=== PATIENT | female | born 1935 | race Caucasian/White ===

== ENCOUNTER 2016-11-06 02:12 | Inpatient (IN) | payer MEDICARE, MEDICAID ==
[2016-11-06] VITALS (8 sets, daily range): BP systolic 110–138; BP diastolic 37–76
[~2016-11-06] VITALS: Ht 165.1 cm; Wt 97.8 kg
[~2016-11-06 02:12] MED LIST: AMLODIPINE BESYL5 MG PO; ASPIRIN ADULT L81 M1 PO; ASPIRIN81 M1 PO; CLARITIN10 MG PO; DEPAKOTE DR500 MG PO; DIABETIC T100 MG/51 PO; HYDR25T PO; HYDROCODONE BIT1 T11 PO; KEPPRA500 MG PO; LISINOPRIL40 MG PO; LYRICA100 M1 PO; NEURONTIN100 MG PO; NORFLEX100 MG PO; NOVOLOG 70/30 M10 ML IV; NOVOLOG FLEX100 U/ML SC; NOVOLOG MI100 UNIT/1 SQ; OYSTERCAL-D 5001 TAB PO; PRAVACHOL40 MG PO; PROTONIX20 MG PO; ROBITUSSIN NIG118 ML PO; TYLENOL325 M1 PO; ZESTRIL20 MG PO; ZESTRIL40 MG PO; ZOFRAN4 MG PO; [UNRECOGNIZED DRUG - OTHER] IV
[2016-11-06] MEDS ORDERED: ATORVASTATIN CA40 M1 PO (02:22)
[2016-11-06] MEDS ORDERED: ZOLOFT25 MG PO (02:26)
[2016-11-06] MEDS ORDERED: ULTRAM50 MG PO (02:26)
[2016-11-06 02:53] LABS: BASO % 0.2 % (0.0-1.0); EOS # 0.1 10*3/uL (0.0-0.4); EOS % 2.3 % (1.0-4.0); HEMATOCRIT 31.2 % (37.0-47.0); HEMOGLOBIN 9.7 g/dl (12.0-16.0); IG # 0.1 10*3/uL (0.0-0.1); LYMPH # 0.6 10*3/uL (1.3-4.4); LYMPH % 11.2 % (27.0-41.0); MEAN CELL VOLUME 95.1 fl (81.0-99.0); MEAN CORPUSCULAR HGB 29.6 pg (27.0-31.0); MEAN CORPUSCULAR HGB CONC 31.1 g/dl (33.0-37.0); MEAN PLATELET VOLUME 10.7 fl (9.6-12.3); MONO # 0.8 10*3/uL (0.1-1.0); MONO % 15.7 % (3.0-9.0); NEUT # 3.7 10*3/uL (2.3-7.9); NEUT % 69.7 % (47.0-73.0); PLATELET COUNT AUTOMATED 120 10*3/uL (130-400); RED BLOOD COUNT 3.28 10*6/uL (4.10-5.10); RED CELL DISTRI WIDTH 13.4 % (0-14.5); WHITE BLOOD COUNT 5.3 10*3/uL (4.8-10.8)
[2016-11-06 03:12] LABS: ALBUMIN 3.2 gm/dl (3.1-4.5); BILIRUBIN, TOTAL 0.3 mg/dl (0.2-1.0); POTASSIUM 5.4 mmol/L (3.5-5.1); TOTAL PROTEIN 6.6 gm/dL (6.4-8.2); TROPONIN I 0.026 ng/ml (<0.5)
[2016-11-06 04:05] LABS: BILIRUBIN NEGATIVE (NEGATIVE); BLOOD TRACE-INTACT (NEGATIVE); CLARITY SL CLOUDY (CLEAR); COLOR YELLOW (YELLOW); GLUCOSE TRACE (NEGATIVE); KETONE NEGATIVE (NEGATIVE); LEUKO ESTERASE 2+ (NEGATIVE); NITRITE NEGATIVE (NEGATIVE); PH 6.5 (5.0-9.0); PROTEIN NEGATIVE (NEGATIVE); UROBILINOGEN 0.2 E.U./dl (0.2-1.0)
[2016-11-06 04:13] LABS: BACTERIA 2+; EPITHELIAL CELLS 21-30; RBC 0-2 rbc/hpf (0-2); URINE REFLEX COMMENT YES (NO); WBC 31-40 wbc/hpf (0-5)
[2016-11-06] MEDS ORDERED: LANTUS100 U/ML SQ (07:24)
[2016-11-07] VITALS: BP 157/78
[2016-11-07 06:45] LABS: HEMATOCRIT 29.5 % (37.0-47.0); HEMOGLOBIN 9.1 g/dl (12.0-16.0); MEAN CELL VOLUME 95.8 fl (81.0-99.0); MEAN CORPUSCULAR HGB 29.5 pg (27.0-31.0); MEAN CORPUSCULAR HGB CONC 30.8 g/dl (33.0-37.0); MEAN PLATELET VOLUME 11.3 fl (9.6-12.3); PLATELET COUNT AUTOMATED 118 10*3/uL (130-400); RED BLOOD COUNT 3.08 10*6/uL (4.10-5.10); RED CELL DISTRI WIDTH 13.6 % (0-14.5); WHITE BLOOD COUNT 4.2 10*3/uL (4.8-10.8)
[2016-11-07 07:04] LABS: ATYPICAL LYMPHS 1 % (0-0); LYMPHOCYTE # 0.3 10*3/uL (1.3-4.4); NEUTROPHIL # 3.9 10*3/uL (2.3-7.9); NEUTROPHILS 92 % (47-73); TOTAL CELLS COUNTED 100 #CELLS
[2016-11-07 07:05] LABS: ACANTHOCYTES FEW; PLATELET SUFFICIENCY LOW (NORMAL)
[2016-11-07 07:31] LABS: ALBUMIN 2.7 gm/dl (3.1-4.5); ALKALINE PHOSPHATASE 79 U/L (45-117); BUN 23 mg/dl (7-24); CARBON DIOXIDE 27 mmol/L (21-32); CHLORIDE 109 mmol/L (98-107); EST GLOM FILT AFRICAN AMERICAN 44 ml/min; GLUCOSE 283 mg/dL (65-99); MAGNESIUM 1.8 mg/dL (1.5-2.1); PHOSPHOROUS 3.2 mg/dL (2.5-4.9); POTASSIUM 5.7 mmol/L (3.5-5.1); SGOT/AST 22 IU/L (3-35); SGPT/ALT 10 U/L (12-78); SODIUM 145 mmol/L (136-145); TOTAL PROTEIN 6.1 gm/dL (6.4-8.2)
[2016-11-07 07:33] LABS: BILIRUBIN, TOTAL < 0.1 mg/dl (0.2-1.0)
[2016-11-07 08:00] VITALS: BP 124/50
[2016-11-07 12:00] VITALS: BP 160/68
[2016-11-07 16:00] VITALS: BP 122/66
[2016-11-07] MEDS ORDERED: PREDNISONE50 MG PO (16:52)
[2016-11-07] MEDS ORDERED: LEVAQUIN750 M1 PO (16:52)
== END 2016-11-07 19:00 | DRG 871 ==
LOC: ED 02:12 → EDHOLD 05:21 → 4E 05:21
PROVIDERS: Emergency Medicine Emergency Medical Services; Internal Medicine
DX: A41.9 Sepsis, unspecified organism (principal); J18.9 Pneumonia, unspecified organism; G93.40 Encephalopathy, unspecified; E44.0 Moderate protein-calorie malnutrition; N39.0 Urinary tract infection, site not specified; E11.65 Type 2 diabetes mellitus with hyperglycemia; E11.40 Type 2 diabetes mellitus with diabetic neuropathy, unspecified; E53.0 Riboflavin deficiency; E11.49 Type 2 diabetes mellitus with other diabetic neurological complication; D64.9 Anemia, unspecified; E78.5 Hyperlipidemia, unspecified; E87.5 Hyperkalemia; E55.9 Vitamin D deficiency, unspecified; G40.909 Epilepsy, unspecified, not intractable, without status epilepticus; I12.9 Hypertensive chronic kidney disease with stage 1 through stage 4 chronic kidney disease, or unspecified chronic kidney disease; N18.9 Chronic kidney disease, unspecified; Z79.899 Other long term (current) drug therapy; Z79.4 Long term (current) use of insulin; Z79.82 Long term (current) use of aspirin; Z98.42 Cataract extraction status, left eye; Z98.41 Cataract extraction status, right eye; Z98.890 Other specified postprocedural states; Z68.35 Body mass index [BMI] 35.0-35.9, adult

== ENCOUNTER 2017-02-27 01:30 | Inpatient (IN) | payer MEDICARE, MEDICAID ==
[2017-02-27] VITALS (10 sets, daily range): BP systolic 123–158; BP diastolic 56–88
[~2017-02-27] VITALS: Ht 160 cm; Wt 105.0 kg
--- NOTE | ~2017-02-27 | EKG ---
[place], [place] ELECTROCARDIOGRAM REPORT NAME: DESIRE LEYVA UNIT #: [id number] ROOM: 409 DOCTOR: ALEC BRAUN MD BIRTHDATE: [birth year] DOS: 02/27/2017 TIME: 0156 in the morning. Normal sinus rhythm at a heart rate of 71. Nonspecific intraventricular conduction delay. Abnormal electrocardiogram. ALEC BRAUN MD CM:EKGRPT:ELECTROCARDIOGRAM REPORT [id number] ALEC BRAUN MD
[~2017-02-27 01:30] MED LIST changes: +ATORVASTATIN CA40 M1 PO; +LANTUS100 U/ML SQ; +LEVAQUIN750 M1 PO; +PREDNISONE50 MG PO; +ULTRAM50 MG PO; +ZOLOFT25 MG PO
[2017-02-27] MEDS ORDERED: NOVOLOG10 ML SC (01:50)
[2017-02-27] MEDS ORDERED: TYLENOL325 M1 PO (01:52)
[2017-02-27 02:03] LABS: HEMATOCRIT 32.7 % (37.0-47.0); HEMOGLOBIN 10.3 g/dl (12.0-16.0); MEAN CORPUSCULAR HGB 29.6 pg (27.0-31.0); MEAN CORPUSCULAR HGB CONC 31.5 g/dl (33.0-37.0); MEAN PLATELET VOLUME 11.2 fl (9.6-12.3); PLATELET COUNT AUTOMATED 127 10*3/uL (130-400); RED BLOOD COUNT 3.48 10*6/uL (4.10-5.10); WHITE BLOOD COUNT 6.1 10*3/uL (4.8-10.8)
[2017-02-27 02:21] LABS: ALBUMIN 3.3 gm/dl (3.1-4.5); BILIRUBIN, TOTAL 0.2 mg/dl (0.2-1.0); MAGNESIUM 1.8 mg/dL (1.5-2.1); POTASSIUM 5.7 mmol/L (3.5-5.1); TOTAL PROTEIN 6.8 gm/dL (6.4-8.2)
[2017-02-27 02:22] LABS: TROPONIN I 0.038 ng/ml (<0.045)
[2017-02-27 02:24] LABS: EOSINOPHIL # 0.2 10*3/uL (0-0.4); EOSINOPHILS 3 % (1-4); METAMYELOCYTES 1 % (0-0); MONOCYTE # 0.4 10*3/uL (0.1-1.0); MYELOCYTES 1 % (0-0); NEUTROPHIL # 3.4 10*3/uL (2.3-7.9); NEUTROPHILS 56 % (47-73); TOTAL CELLS COUNTED 100 #CELLS
[2017-02-27 02:27] LABS: PLATELET SUFFICIENCY LOW (NORMAL)
[2017-02-27 02:28] LABS: POLYCHROMASIA SLIGHT
[2017-02-27 02:46] LABS: BILIRUBIN NEGATIVE (NEGATIVE); BLOOD 2+ (NEGATIVE); CLARITY CLEAR (CLEAR); COLOR YELLOW (YELLOW); GLUCOSE 3+ (NEGATIVE); KETONE NEGATIVE (NEGATIVE); LEUKO ESTERASE NEGATIVE (NEGATIVE); NITRITE NEGATIVE (NEGATIVE); PROTEIN NEGATIVE (NEGATIVE); UROBILINOGEN 0.2 E.U./dl (0.2-1.0)
[2017-02-27 03:01] LABS: BACTERIA 1+; URINE REFLEX COMMENT YES (NO); WBC 0-2 wbc/hpf (0-5)
[2017-02-27 06:32] LABS: TROPONIN I 0.039 ng/ml (<0.045)
[2017-02-27 07:04] LABS: HEMATOCRIT 30.9 % (37.0-47.0); HEMOGLOBIN 9.7 g/dl (12.0-16.0); MEAN CELL VOLUME 95.1 fl (81.0-99.0); MEAN CORPUSCULAR HGB 29.8 pg (27.0-31.0); MEAN CORPUSCULAR HGB CONC 31.4 g/dl (33.0-37.0); MEAN PLATELET VOLUME 11.8 fl (9.6-12.3); NUCLEATED RED BLOOD CELL 0.3 % (0.0-0.0); PLATELET COUNT AUTOMATED 124 10*3/uL (130-400); RED BLOOD COUNT 3.25 10*6/uL (4.10-5.10); RED CELL DISTRI WIDTH 14.9 % (0-14.5); WHITE BLOOD COUNT 6.1 10*3/uL (4.8-10.8)
[2017-02-27 07:31] LABS: ALBUMIN 3.1 gm/dl (3.1-4.5); BILIRUBIN, TOTAL 0.2 mg/dl (0.2-1.0); POTASSIUM 5.6 mmol/L (3.5-5.1); TOTAL PROTEIN 6.1 gm/dL (6.4-8.2)
[2017-02-27 07:59] LABS: BASOPHIL # 0.1 10*3/uL (0-0.1); BASOPHILS 1 % (0-1); EOSINOPHIL # 0.1 10*3/uL (0-0.4); EOSINOPHILS 1 % (1-4); MONOCYTE # 0.4 10*3/uL (0.1-1.0); MYELOCYTES 3 % (0-0); NEUTROPHIL # 3.4 10*3/uL (2.3-7.9); NEUTROPHILS 56 % (47-73); OVALOCYTES FEW; PLATELET SUFFICIENCY LOW (NORMAL); SCHISTOCYTES FEW; TOTAL CELLS COUNTED 100 #CELLS
[2017-02-27 12:25] LABS: CKMB 2.9 ng/ml (0.5-3.6); TROPONIN I 0.038 ng/ml (<0.045)
[2017-02-27 18:23] LABS: CKMB 3.1 ng/ml (0.5-3.6); TROPONIN I 0.037 ng/ml (<0.045)
[2017-02-28] VITALS: BP 153/88
[2017-02-28 07:33] LABS: BASO % 0.3 % (0.0-1.0); EOS # 0.2 10*3/uL (0.0-0.4); EOS % 3.3 % (1.0-4.0); HEMATOCRIT 30.4 % (37.0-47.0); HEMOGLOBIN 9.5 g/dl (12.0-16.0); IG # 0.1 10*3/uL (0.0-0.1); LYMPH # 1.8 10*3/uL (1.3-4.4); LYMPH % 29.8 % (27.0-41.0); MEAN CELL VOLUME 94.7 fl (81.0-99.0); MEAN CORPUSCULAR HGB 29.6 pg (27.0-31.0); MEAN CORPUSCULAR HGB CONC 31.3 g/dl (33.0-37.0); MEAN PLATELET VOLUME 11.8 fl (9.6-12.3); MONO # 0.5 10*3/uL (0.1-1.0); MONO % 8.6 % (3.0-9.0); NEUT # 3.4 10*3/uL (2.3-7.9); NEUT % 55.7 % (47.0-73.0); PLATELET COUNT AUTOMATED 110 10*3/uL (130-400); RED BLOOD COUNT 3.21 10*6/uL (4.10-5.10); RED CELL DISTRI WIDTH 14.6 % (0-14.5); WHITE BLOOD COUNT 6.2 10*3/uL (4.8-10.8)
[2017-02-28 08:00] VITALS: BP 138/80; BP 153/99
[2017-02-28 08:12] LABS: PROTHROMBIN TIME 10.6 SECONDS (9.0-12.4)
[2017-02-28 08:24] LABS: MAGNESIUM 1.5 mg/dL (1.5-2.1); PHOSPHOROUS 3.7 mg/dL (2.5-4.9); POTASSIUM 4.4 mmol/L (3.5-5.1)
[2017-02-28 12:00] VITALS: BP 155/67
== END 2017-02-28 16:46 | DRG 682 ==
LOC: ED 01:30 → 4E 03:31 → EDHOLD 03:31 → 4E 03:46
PROVIDERS: Emergency Medicine Emergency Medical Services; Internal Medicine
DX: N17.0 Acute kidney failure with tubular necrosis (principal); G93.41 Metabolic encephalopathy; E44.0 Moderate protein-calorie malnutrition; E11.22 Type 2 diabetes mellitus with diabetic chronic kidney disease; D69.6 Thrombocytopenia, unspecified; E11.42 Type 2 diabetes mellitus with diabetic polyneuropathy; E11.65 Type 2 diabetes mellitus with hyperglycemia; N18.3 Chronic kidney disease, stage 3 (moderate); E87.5 Hyperkalemia; R82.71 Bacteriuria; E66.01 Morbid (severe) obesity due to excess calories; I12.9 Hypertensive chronic kidney disease with stage 1 through stage 4 chronic kidney disease, or unspecified chronic kidney disease; E55.9 Vitamin D deficiency, unspecified; G40.909 Epilepsy, unspecified, not intractable, without status epilepticus; E78.5 Hyperlipidemia, unspecified; K57.90 Diverticulosis of intestine, part unspecified, without perforation or abscess without bleeding; D64.9 Anemia, unspecified; F32.9 Major depressive disorder, single episode, unspecified; Z79.4 Long term (current) use of insulin; Z87.440 Personal history of urinary (tract) infections; Z79.82 Long term (current) use of aspirin; Z79.1 Long term (current) use of non-steroidal anti-inflammatories (NSAID); Z79.899 Other long term (current) drug therapy; Z68.35 Body mass index [BMI] 35.0-35.9, adult

== ENCOUNTER 2017-04-08 08:52 | Inpatient (IN) | payer MEDICARE, MEDICAID ==
[~2017-04-08] VITALS: Ht 5 cm; Wt 102.7 kg
[2017-04-08] VITALS (7 sets, daily range): BP systolic 135–193; BP diastolic 54–81
[~2017-04-08 08:52] MED LIST changes: +NOVOLOG10 ML SC
[2017-04-08] MEDS ORDERED: GOOD NEIGHBOR L10 MG PO (09:03)
[2017-04-08] MEDS ORDERED: ALBUTEROL0.63 MG/3 INH (09:04)
[2017-04-08] MEDS ORDERED: LASIX40 MG PO (09:07)
[2017-04-08] MEDS ORDERED: POTASSIUM CHLO20 ME3 PO (09:08)
[2017-04-08] MEDS ORDERED: SINGULAIR10 M1 PO (09:09)
[2017-04-08] MEDS ORDERED: TYLENOL325 M1 PO (09:09)
[2017-04-08] MEDS ORDERED: VISINE 15 ML15 ML OPH (09:10)
[2017-04-08 09:18] LABS: BASO % 0.4 % (0.0-1.0); EOS # 0.2 10*3/uL (0.0-0.4); EOS % 2.4 % (1.0-4.0); HEMATOCRIT 33.6 % (37.0-47.0); HEMOGLOBIN 10.5 g/dl (12.0-16.0); IG # 0.2 10*3/uL (0.0-0.1); LYMPH # 2.6 10*3/uL (1.3-4.4); LYMPH % 30.3 % (27.0-41.0); MEAN CELL VOLUME 92.3 fl (81.0-99.0); MEAN CORPUSCULAR HGB 28.8 pg (27.0-31.0); MEAN CORPUSCULAR HGB CONC 31.3 g/dl (33.0-37.0); MONO # 0.7 10*3/uL (0.1-1.0); MONO % 8.8 % (3.0-9.0); NEUT # 4.7 10*3/uL (2.3-7.9); NEUT % 56.1 % (47.0-73.0); PLATELET COUNT AUTOMATED 120 10*3/uL (130-400); RED BLOOD COUNT 3.64 10*6/uL (4.10-5.10); RED CELL DISTRI WIDTH 15.3 % (0-14.5); WHITE BLOOD COUNT 8.4 10*3/uL (4.8-10.8)
[2017-04-08 09:35] LABS: BILIRUBIN, TOTAL 0.3 mg/dl (0.2-1.0); POTASSIUM 4.5 mmol/L (3.5-5.1); TOTAL PROTEIN 6.7 gm/dL (6.4-8.2)
[2017-04-08 09:36] LABS: TROPONIN I 0.034 ng/ml (<0.045)
[2017-04-08 10:00] LABS: BILIRUBIN NEGATIVE (NEGATIVE); BLOOD 2+ (NEGATIVE); CLARITY CLOUDY (CLEAR); COLOR YELLOW (YELLOW); GLUCOSE TRACE (NEGATIVE); KETONE NEGATIVE (NEGATIVE); LEUKO ESTERASE 3+ (NEGATIVE); NITRITE POSITIVE (NEGATIVE); PROTEIN NEGATIVE (NEGATIVE); UROBILINOGEN 0.2 E.U./dl (0.2-1.0)
[2017-04-08 10:14] LABS: BACTERIA 4+; URINE REFLEX COMMENT YES (NO); WBC TNTC wbc/hpf (0-5)
[2017-04-08 17:57] LABS: CKMB 0.8 ng/ml (0.5-3.6)
[2017-04-09] VITALS: BP 144/96
[2017-04-09 01:07] LABS: CKMB 1.5 ng/ml (0.5-3.6)
[2017-04-09 06:12] LABS: BASO % 0.4 % (0.0-1.0); EOS # 0.3 10*3/uL (0.0-0.4); EOS % 3.5 % (1.0-4.0); HEMATOCRIT 30.8 % (37.0-47.0); HEMOGLOBIN 9.3 g/dl (12.0-16.0); IG # 0.1 10*3/uL (0.0-0.1); LYMPH # 2.1 10*3/uL (1.3-4.4); LYMPH % 28.9 % (27.0-41.0); MEAN CELL VOLUME 92.8 fl (81.0-99.0); MEAN CORPUSCULAR HGB CONC 30.2 g/dl (33.0-37.0); MEAN PLATELET VOLUME 10.9 fl (9.6-12.3); MONO # 0.6 10*3/uL (0.1-1.0); MONO % 7.9 % (3.0-9.0); NEUT # 4.1 10*3/uL (2.3-7.9); NEUT % 57.6 % (47.0-73.0); PLATELET COUNT AUTOMATED 113 10*3/uL (130-400); RED BLOOD COUNT 3.32 10*6/uL (4.10-5.10); WHITE BLOOD COUNT 7.1 10*3/uL (4.8-10.8)
[2017-04-09 06:28] LABS: CKMB 1.5 ng/ml (0.5-3.6)
[2017-04-09 06:42] LABS: PROTHROMBIN TIME 10.4 SECONDS (9.0-12.4)
[2017-04-09 06:44] LABS: ALBUMIN 2.6 gm/dl (3.1-4.5); BILIRUBIN, TOTAL 0.2 mg/dl (0.2-1.0); MAGNESIUM 1.9 mg/dL (1.5-2.1); PHOSPHOROUS 3.8 mg/dL (2.5-4.9); POTASSIUM 4.5 mmol/L (3.5-5.1); TOTAL PROTEIN 5.9 gm/dL (6.4-8.2)
[2017-04-09 06:50] LABS: FREE T4 0.82 ng/dl (0.76-1.46); THYROID STIM HORMONE (HS) 1.34 uIU/ml (0.358-4.75)
[2017-04-09 07:41] LABS: VITAMIN D, 25-HYDROXY 7.3 ng/mL (30-100)
[2017-04-09 07:42] LABS: FOLIC ACID 9.83 ng/mL (>5.38)
[2017-04-09 08:00] VITALS: BP 130/62
[2017-04-09 12:00] VITALS: BP 140/68
[2017-04-09 16:00] VITALS: BP 128/62
[2017-04-09 20:00] VITALS: BP 129/66
[2017-04-10] VITALS: BP 134/64
[2017-04-10 08:00] VITALS: BP 148/72
[2017-04-10] MEDS ORDERED: DOXYCYCLINE100 MG PO (10:45)
[2017-04-10 12:00] VITALS: BP 146/70
[2017-04-10 12:18] LABS: BASO % 0.3 % (0.0-1.0); EOS # 0.3 10*3/uL (0.0-0.4); EOS % 3.8 % (1.0-4.0); HEMATOCRIT 32.1 % (37.0-47.0); IG # 0.1 10*3/uL (0.0-0.1); LYMPH # 1.9 10*3/uL (1.3-4.4); LYMPH % 24.5 % (27.0-41.0); MEAN CELL VOLUME 92.8 fl (81.0-99.0); MEAN CORPUSCULAR HGB 28.9 pg (27.0-31.0); MEAN CORPUSCULAR HGB CONC 31.2 g/dl (33.0-37.0); MEAN PLATELET VOLUME 11.6 fl (9.6-12.3); MONO # 0.7 10*3/uL (0.1-1.0); MONO % 8.7 % (3.0-9.0); NEUT # 4.8 10*3/uL (2.3-7.9); NEUT % 61.3 % (47.0-73.0); PLATELET COUNT AUTOMATED 133 10*3/uL (130-400); RED BLOOD COUNT 3.46 10*6/uL (4.10-5.10); RED CELL DISTRI WIDTH 14.6 % (0-14.5); WHITE BLOOD COUNT 7.7 10*3/uL (4.8-10.8)
[2017-04-10 12:39] LABS: POTASSIUM 4.9 mmol/L (3.5-5.1)
== END 2017-04-10 14:55 | disposition home or self-care (01) | DRG 871 ==
LOC: ED 08:52 → EDHOLD 10:48 → 5E 10:48
PROVIDERS: Emergency Medicine; Internal Medicine
DX: A41.9 Sepsis, unspecified organism (principal); G93.41 Metabolic encephalopathy; N17.0 Acute kidney failure with tubular necrosis; E87.0 Hyperosmolality and hypernatremia; E44.0 Moderate protein-calorie malnutrition; D69.6 Thrombocytopenia, unspecified; N18.3 Chronic kidney disease, stage 3 (moderate); I13.0 Hypertensive heart and chronic kidney disease with heart failure and stage 1 through stage 4 chronic kidney disease, or unspecified chronic kidney disease; E11.22 Type 2 diabetes mellitus with diabetic chronic kidney disease; I50.32 Chronic diastolic (congestive) heart failure; N39.0 Urinary tract infection, site not specified; Z68.41 Body mass index [BMI] 40.0-44.9, adult; R65.20 Severe sepsis without septic shock; E86.0 Dehydration; E78.5 Hyperlipidemia, unspecified; E11.42 Type 2 diabetes mellitus with diabetic polyneuropathy; G40.909 Epilepsy, unspecified, not intractable, without status epilepticus; B96.20 Unspecified Escherichia coli [E. coli] as the cause of diseases classified elsewhere; D64.9 Anemia, unspecified; F32.9 Major depressive disorder, single episode, unspecified; E55.9 Vitamin D deficiency, unspecified; E53.8 Deficiency of other specified B group vitamins; E66.01 Morbid (severe) obesity due to excess calories; K57.90 Diverticulosis of intestine, part unspecified, without perforation or abscess without bleeding; Z98.42 Cataract extraction status, left eye; Z98.41 Cataract extraction status, right eye; Z86.73 Personal history of transient ischemic attack (TIA), and cerebral infarction without residual deficits

== ENCOUNTER 2017-05-20 16:15 | Inpatient (IN) | payer MEDICARE, MEDICAID ==
[~2017-05-20] VITALS: Ht 160 cm; Wt 99.3 kg
[~2017-05-20 16:15] MED LIST changes: +ALBUTEROL0.63 MG/3 INH; +DOXYCYCLINE100 MG PO; +GOOD NEIGHBOR L10 MG PO; +LASIX40 MG PO; +POTASSIUM CHLO20 ME3 PO; +SINGULAIR10 M1 PO; +VISINE 15 ML15 ML OPH
[2017-05-20 16:44] VITALS: BP 159/57
[2017-05-20 16:52] LABS: BASO % 0.4 % (0.0-1.0); EOS # 0.2 10*3/uL (0.0-0.4); EOS % 3.4 % (1.0-4.0); HEMATOCRIT 35.3 % (37.0-47.0); HEMOGLOBIN 10.9 g/dl (12.0-16.0); IG # 0.2 10*3/uL (0.0-0.1); LYMPH % 27.3 % (27.0-41.0); MEAN CELL VOLUME 91.7 fl (81.0-99.0); MEAN CORPUSCULAR HGB 28.3 pg (27.0-31.0); MEAN CORPUSCULAR HGB CONC 30.9 g/dl (33.0-37.0); MEAN PLATELET VOLUME 10.8 fl (9.6-12.3); MONO # 0.6 10*3/uL (0.1-1.0); MONO % 7.8 % (3.0-9.0); NEUT # 4.2 10*3/uL (2.3-7.9); NEUT % 58.7 % (47.0-73.0); PLATELET COUNT AUTOMATED 208 10*3/uL (130-400); RED BLOOD COUNT 3.85 10*6/uL (4.10-5.10); RED CELL DISTRI WIDTH 15.4 % (0-14.5); WHITE BLOOD COUNT 7.2 10*3/uL (4.8-10.8)
[2017-05-20 17:01] LABS: INTERNATIONAL NORM RATIO 0.9 (2.0-3.5)
[2017-05-20 17:09] LABS: ALBUMIN 3.4 gm/dl (3.1-4.5); BILIRUBIN, TOTAL 0.2 mg/dl (0.2-1.0); MAGNESIUM 1.9 mg/dL (1.5-2.1); POTASSIUM 4.8 mmol/L (3.5-5.1); TOTAL PROTEIN 7.3 gm/dL (6.4-8.2)
[2017-05-20 17:10] LABS: TROPONIN I 0.035 ng/ml (<0.045)
[2017-05-20 17:30] VITALS: BP 151/80
[2017-05-20 17:44] LABS: BILIRUBIN NEGATIVE (NEGATIVE); BLOOD 3+ (NEGATIVE); CLARITY CLEAR (CLEAR); COLOR YELLOW (YELLOW); GLUCOSE NEGATIVE (NEGATIVE); KETONE TRACE (NEGATIVE); LEUKO ESTERASE 1+ (NEGATIVE); NITRITE NEGATIVE (NEGATIVE); PH 5.5 (5.0-9.0); PROTEIN NEGATIVE (NEGATIVE); SPECIFIC GRAVITY 1.015 (1.005-1.030); UROBILINOGEN 0.2 E.U./dl (0.2-1.0)
[2017-05-20 17:51] LABS: URINE REFLEX COMMENT YES (NO)
[2017-05-20 17:53] LABS: BACTERIA TRACE
[2017-05-20 17:54] LABS: RBC 21-30 rbc/hpf (0-2)
[2017-05-20 18:00] VITALS: BP 147/62
[2017-05-20 18:38] VITALS: BP 144/63
[2017-05-20] MEDS ORDERED: METFORMIN500 MG PO (19:03)
[2017-05-20 19:04] VITALS: BP 138/70
[2017-05-20 20:53] VITALS: BP 134/79
[2017-05-21] VITALS: BP 158/71
[2017-05-21 06:29] LABS: BASO % 0.2 % (0.0-1.0); EOS # 0.3 10*3/uL (0.0-0.4); HEMATOCRIT 31.9 % (37.0-47.0); HEMOGLOBIN 9.9 g/dl (12.0-16.0); IG # 0.1 10*3/uL (0.0-0.1); LYMPH # 1.9 10*3/uL (1.3-4.4); LYMPH % 22.6 % (27.0-41.0); MEAN CELL VOLUME 91.9 fl (81.0-99.0); MEAN CORPUSCULAR HGB 28.5 pg (27.0-31.0); MEAN PLATELET VOLUME 11.1 fl (9.6-12.3); MONO # 0.9 10*3/uL (0.1-1.0); MONO % 10.5 % (3.0-9.0); NEUT # 5.2 10*3/uL (2.3-7.9); NEUT % 62.1 % (47.0-73.0); PLATELET COUNT AUTOMATED 173 10*3/uL (130-400); RED BLOOD COUNT 3.47 10*6/uL (4.10-5.10); RED CELL DISTRI WIDTH 15.1 % (0-14.5); WHITE BLOOD COUNT 8.3 10*3/uL (4.8-10.8)
[2017-05-21 06:56] LABS: PROTHROMBIN TIME 10.3 SECONDS (9.0-12.4)
[2017-05-21 06:58] LABS: BILIRUBIN, TOTAL 0.3 mg/dl (0.2-1.0); MAGNESIUM 1.8 mg/dL (1.5-2.1); PHOSPHOROUS 3.4 mg/dL (2.5-4.9); POTASSIUM 4.2 mmol/L (3.5-5.1); TOTAL PROTEIN 6.5 gm/dL (6.4-8.2)
[2017-05-21 07:05] LABS: THYROID STIM HORMONE (HS) 1.66 uIU/ml (0.358-4.75)
[2017-05-21 08:00] VITALS: BP 152/68
[2017-05-21 08:10] LABS: FOLIC ACID 13.06 ng/mL (>5.38)
[2017-05-21 16:00] VITALS: BP 125/68
[2017-05-21 20:00] VITALS: BP 121/61
[2017-05-22] VITALS: BP 142/84
[2017-05-22 06:42] LABS: BASO % 0.4 % (0.0-1.0); EOS # 0.3 10*3/uL (0.0-0.4); EOS % 4.9 % (1.0-4.0); HEMATOCRIT 30.8 % (37.0-47.0); HEMOGLOBIN 9.5 g/dl (12.0-16.0); IG # 0.1 10*3/uL (0.0-0.1); LYMPH # 1.8 10*3/uL (1.3-4.4); LYMPH % 32.4 % (27.0-41.0); MEAN CELL VOLUME 92.2 fl (81.0-99.0); MEAN CORPUSCULAR HGB 28.4 pg (27.0-31.0); MEAN CORPUSCULAR HGB CONC 30.8 g/dl (33.0-37.0); MEAN PLATELET VOLUME 10.4 fl (9.6-12.3); MONO # 0.5 10*3/uL (0.1-1.0); MONO % 9.5 % (3.0-9.0); NEUT # 2.8 10*3/uL (2.3-7.9); NEUT % 50.6 % (47.0-73.0); PLATELET COUNT AUTOMATED 156 10*3/uL (130-400); RED BLOOD COUNT 3.34 10*6/uL (4.10-5.10); RED CELL DISTRI WIDTH 14.7 % (0-14.5); WHITE BLOOD COUNT 5.6 10*3/uL (4.8-10.8)
[2017-05-22 08:00] VITALS: BP 146/79
[2017-05-22 16:00] VITALS: BP 133/66
[2017-05-22 20:00] VITALS: BP 154/79
[2017-05-23] VITALS: BP 146/60
[2017-05-23 06:56] LABS: POTASSIUM 4.5 mmol/L (3.5-5.1)
[2017-05-23 08:00] VITALS: BP 151/77
[2017-05-23] MEDS ORDERED: B12,B-12,B 12500 MC1 PO (11:48)
[2017-05-23] MEDS ORDERED: AUGMENTIN 500 M1 TAB PO (11:48)
[2017-05-23] MEDS ORDERED: VITAMIN D1000 IU PO (11:48)
== END 2017-05-23 15:00 | disposition other institution (70) | DRG 682 ==
LOC: ED 16:15 → EDHOLD 18:07 → 5E 18:07
PROVIDERS: Hospitalist; Internal Medicine Nephrology; Nurse Practitioner Family
DX: N17.0 Acute kidney failure with tubular necrosis (principal); G93.41 Metabolic encephalopathy; E44.0 Moderate protein-calorie malnutrition; I25.3 Aneurysm of heart; I13.0 Hypertensive heart and chronic kidney disease with heart failure and stage 1 through stage 4 chronic kidney disease, or unspecified chronic kidney disease; E11.22 Type 2 diabetes mellitus with diabetic chronic kidney disease; E66.01 Morbid (severe) obesity due to excess calories; I50.32 Chronic diastolic (congestive) heart failure; N39.0 Urinary tract infection, site not specified; N18.3 Chronic kidney disease, stage 3 (moderate); G40.909 Epilepsy, unspecified, not intractable, without status epilepticus; D72.821 Monocytosis (symptomatic); E11.65 Type 2 diabetes mellitus with hyperglycemia; E55.9 Vitamin D deficiency, unspecified; E11.49 Type 2 diabetes mellitus with other diabetic neurological complication; K57.90 Diverticulosis of intestine, part unspecified, without perforation or abscess without bleeding; K44.9 Diaphragmatic hernia without obstruction or gangrene; Z68.38 Body mass index [BMI] 38.0-38.9, adult; Z86.73 Personal history of transient ischemic attack (TIA), and cerebral infarction without residual deficits; Z98.42 Cataract extraction status, left eye; Z98.41 Cataract extraction status, right eye; D72.810 Lymphocytopenia

== ENCOUNTER 2017-12-04 17:28 | Inpatient (IN) | payer MEDICARE, MEDICAID ==
[~2017-12-04] VITALS: Ht 165.1 cm; Wt 95.4 kg
--- NOTE | ~2017-12-04 | PR ---
[place], [place] PROGRESS NOTE NAME: DESIRE LEYVA [facility] #: [id number] UNIT #: [id number] ROOM: [facility] DOCTOR: LANDRY RAPHAEL,JOSEPH Dunn BIRTHDATE: [birth year] DOS: 12/10/2017 SUBJECTIVE: The patient was seen and examined. She is lying in bed. She is in no acute distress. She is on room air. She has been stable and there are plans for her to be transferred back to the snf. PHYSICAL EXAMINATION: VITAL SIGNS: Temperature 98.4, pulse 86, respiration rate 16, blood pressure 126/67. HEENT: Shows no JVD. LUNGS: Diminished breath sounds. No wheeze. HEART: Normal S1, S2. No rub, thrill or gallop. ABDOMEN: Soft, nontender. There is no organomegaly. EXTREMITIES: Had trace edema. SKIN: Showed no rash. LABORATORY DATA: Sodium 142, potassium 4.0, CO2 of 29, BUN 43, creatinine 1.65, calcium 8.1. IMPRESSION: 1. Acute kidney injury, which seems to be improving. The patient's renal function is returning to baseline. The patient can resume diuretics on discharge once at the snf. 2. Anemia. Follow H and H. Hemoglobin has been fairly stable. 3. Hypertension. The patient's blood pressure appears to be acceptable. Her KINZA inhibitor can be resumed on discharge. Would recommend labs to be checked in a few days. She is stable for discharge back to the snf from a renal standpoint, JOSEPH ALATORRE MD CM:PNTRANS [id number] JOSEPH ALATORRE MD 12/10/17 1745 interface
--- NOTE | ~2017-12-04 | CON ---
[place], [place] REPORT OF CONSULTATION NAME: DESIRE LEYVA UNIT #: [id number] ROOM: [facility] DOCTOR: TIERNEY LAIRD MD BIRTHDATE: [birth year] DOS: 12/09/2017 CHIEF COMPLAINT: "Good morning." SUMMARY OF THE VISIT: This is an 82-year-old white female who is a resident of a local long-term care facility, [facility] . The patient was admitted due to ongoing medical problems with hypoglycemia and dysphagia. She did have an altered mental status with increasing confusion; however, the medical doctor on the case felt it was secondary to the Neurontin and discontinued it and subsequently, her mental status has cleared somewhat, although she does have baseline Alzheimer's dementia and is confused at baseline. The patient has not been verbally or physically aggressive and has been fairly pleasantly confused. PAST MEDICAL HISTORY: Remarkable for an atrial septal aneurysm; chronic kidney disease, stage unknown; diabetic neuropathy; congestive heart failure; diverticulosis; hiatal hernia; hypertension; hyperlipidemia; insulin-dependent diabetes; morbid obesity; normocytic anemia; seizure disorder; TIAs; vitamin B12 and vitamin D deficiency. MENTAL STATUS: The patient is alert and oriented to self, possibly place, but not time. Mood for the most part is euthymic. Affect is appropriate for content. Speech is slow and deliberate and she processes slowly. Short term memory is exceedingly poor. DIAGNOSIS: Brief psychotic disorder, resolved versus acute delirium, also resolved. PLAN: At this point, I see no other action that needs to be taken. Once you feel that she is medically cleared, the patient can return back to [place] . TIERNEY LAIRD MD CM:CONSTR:REPORT OF CONSULTATION 12/09/17 0946 interface
[~2017-12-04 17:28] MED LIST changes: +AUGMENTIN 500 M1 TAB PO; +B12,B-12,B 12500 MC1 PO; +METFORMIN500 MG PO; +VITAMIN D1000 IU PO
[2017-12-04 17:30] VITALS: BP 133/55
[2017-12-04 18:54] LABS: HEMATOCRIT 33.4 % (37.0-47.0); HEMOGLOBIN 10.6 g/dl (12.0-16.0); MEAN CORPUSCULAR HGB 29.2 pg (27.0-31.0); MEAN CORPUSCULAR HGB CONC 31.7 g/dl (33.0-37.0); PLATELET COUNT AUTOMATED 172 10*3/uL (130-400); RED BLOOD COUNT 3.63 10*6/uL (4.10-5.10); RED CELL DISTRI WIDTH 15.9 % (0-14.5)
[2017-12-04 19:05] LABS: ACT PARTIAL THROMBO TIME 20.9 SECONDS (20.8-31.5); INTERNATIONAL NORM RATIO 0.9 (2.0-3.5)
[2017-12-04 19:10] LABS: CREATININE 1.79 mg/dL (0.55-1.02); POTASSIUM 4.4 mmol/L (3.5-5.1); TOTAL PROTEIN 7.1 gm/dL (6.4-8.2)
[2017-12-04 19:17] LABS: TOTAL CELLS COUNTED 100 #CELLS
[2017-12-04 19:18] VITALS: BP 149/81
[2017-12-04 19:18] LABS: BURR CELLS FEW; OVALOCYTES FEW
[2017-12-04 19:19] LABS: PLATELET SUFFICIENCY NORMAL (NORMAL)
[2017-12-04 19:21] LABS: BASOPHILS 1 % (0-1)
[2017-12-04 19:26] LABS: TROPONIN I 0.073 ng/ml (<0.045)
[2017-12-04 20:58] VITALS: BP 106/59
[2017-12-04 21:49] LABS: BILIRUBIN NEGATIVE (NEGATIVE); BLOOD NEGATIVE (NEGATIVE); CLARITY SL CLOUDY (CLEAR); COLOR YELLOW (YELLOW); GLUCOSE NEGATIVE (NEGATIVE); KETONE NEGATIVE (NEGATIVE); LEUKO ESTERASE NEGATIVE (NEGATIVE); NITRITE NEGATIVE (NEGATIVE); UROBILINOGEN 0.2 E.U./dl (0.2-1.0)
[2017-12-04 22:04] LABS: BACTERIA TRACE; HYALINE CAST 20-25; RBC 0-2 rbc/hpf (0-2); WBC 0-2 wbc/hpf (0-5)
[2017-12-04 22:07] VITALS: BP 144/89
[2017-12-04 23:28] VITALS: BP 131/65
[2017-12-05 01:00] VITALS: BP 150/65
[2017-12-05] MEDS ORDERED: GABAPENTIN600 MG PO (01:02)
[2017-12-05] MEDS ORDERED: TRESIBA FL100 UNIT/1 SQ (01:05)
[2017-12-05] MEDS ORDERED: NEURONTIN300 MG PO (01:07)
[2017-12-05] MEDS ORDERED: Glimepiride1 MG PO (01:08)
[2017-12-05] MEDS ORDERED: KEPPRA250 MG PO (01:09)
[2017-12-05] MEDS ORDERED: METFORMIN1000 MG PO (01:10)
[2017-12-05] MEDS ORDERED: ALUM-MAG HYDRO360 ML PO (01:13)
[2017-12-05] MEDS ORDERED: TYLENOL WITH C1 EACH PO (01:14)
[2017-12-05 04:24] LABS: BASO % 0.3 % (0.0-1.0); EOS # 0.2 10*3/uL (0.0-0.4); HEMOGLOBIN 9.9 g/dl (12.0-16.0); LYMPH # 1.6 10*3/uL (1.3-4.4); LYMPH % 18.3 % (27.0-41.0); MEAN CORPUSCULAR HGB 28.8 pg (27.0-31.0); MEAN CORPUSCULAR HGB CONC 30.9 g/dl (33.0-37.0); MEAN PLATELET VOLUME 10.2 fl (9.6-12.3); MONO # 0.8 10*3/uL (0.1-1.0); MONO % 8.6 % (3.0-9.0); NEUT # 6.2 10*3/uL (2.3-7.9); NEUT % 69.5 % (47.0-73.0); PLATELET COUNT AUTOMATED 150 10*3/uL (130-400); RED BLOOD COUNT 3.44 10*6/uL (4.10-5.10); RED CELL DISTRI WIDTH 15.9 % (0-14.5)
[2017-12-05 04:41] LABS: CREATININE 1.57 mg/dL (0.55-1.02); PHOSPHOROUS 5.5 mg/dL (2.5-4.9); POTASSIUM 4.5 mmol/L (3.5-5.1)
[2017-12-05 04:48] LABS: THYROID STIM HORMONE (HS) 1.77 uIU/ml (0.358-4.75)
[2017-12-05 06:54] LABS: VITAMIN D, 25-HYDROXY 19.3 ng/mL (30-100)
[2017-12-05 08:00] VITALS: BP 162/73
[2017-12-05 12:00] VITALS: BP 125/71
[2017-12-05 16:00] VITALS: BP 126/58
[2017-12-05 20:00] VITALS: BP 137/92
[2017-12-06] VITALS: BP 145/60
[2017-12-06 07:25] LABS: BASO # 0.1 10*3/uL (0.0-0.1); BASO % 0.8 % (0.0-1.0); EOS # 0.1 10*3/uL (0.0-0.4); EOS % 2.1 % (1.0-4.0); HEMATOCRIT 32.2 % (37.0-47.0); HEMOGLOBIN 10.3 g/dl (12.0-16.0); LYMPH # 1.2 10*3/uL (1.3-4.4); LYMPH % 17.9 % (27.0-41.0); MEAN CORPUSCULAR HGB 28.8 pg (27.0-31.0); MONO # 0.8 10*3/uL (0.1-1.0); MONO % 12.5 % (3.0-9.0); NEUT # 4.3 10*3/uL (2.3-7.9); NEUT % 65.5 % (47.0-73.0); PLATELET COUNT AUTOMATED 152 10*3/uL (130-400); RED BLOOD COUNT 3.58 10*6/uL (4.10-5.10); RED CELL DISTRI WIDTH 15.9 % (0-14.5); WHITE BLOOD COUNT 6.6 10*3/uL (4.8-10.8)
[2017-12-06 07:30] LABS: MEAN CELL VOLUME 89.9 fl (81.0-99.0)
[2017-12-06 07:40] LABS: POTASSIUM 4.2 mmol/L (3.5-5.1)
[2017-12-06 08:00] VITALS: BP 153/66
[2017-12-06 08:10] LABS: CREATININE 1.6 mg/dL (0.55-1.02)
[2017-12-06 12:00] VITALS: BP 154/66
[2017-12-06 16:00] VITALS: BP 144/69
[2017-12-06 20:00] VITALS: BP 145/72
[2017-12-07] VITALS: BP 149/66
[2017-12-07 08:40] VITALS: BP 173/81
[2017-12-07 09:15] LABS: BASO % 0.4 % (0.0-1.0); EOS % 0.6 % (1.0-4.0); HEMATOCRIT 32.7 % (37.0-47.0); HEMOGLOBIN 10.3 g/dl (12.0-16.0); LYMPH # 1.5 10*3/uL (1.3-4.4); LYMPH % 21.4 % (27.0-41.0); MEAN CELL VOLUME 89.6 fl (81.0-99.0); MEAN CORPUSCULAR HGB 28.2 pg (27.0-31.0); MEAN CORPUSCULAR HGB CONC 31.5 g/dl (33.0-37.0); MEAN PLATELET VOLUME 11.4 fl (9.6-12.3); MONO # 0.8 10*3/uL (0.1-1.0); MONO % 10.7 % (3.0-9.0); NEUT # 4.6 10*3/uL (2.3-7.9); NEUT % 65.6 % (47.0-73.0); PLATELET COUNT AUTOMATED 188 10*3/uL (130-400); RED BLOOD COUNT 3.65 10*6/uL (4.10-5.10); RED CELL DISTRI WIDTH 15.4 % (0-14.5)
[2017-12-07 09:23] LABS: CREATININE 1.52 mg/dL (0.55-1.02); POTASSIUM 3.5 mmol/L (3.5-5.1)
[2017-12-07 12:00] VITALS: BP 149/88
[2017-12-07 14:57] VITALS: BP 149/88
[2017-12-07 16:00] VITALS: BP 136/74
[2017-12-07] MEDS ORDERED: DOXYCYCLINE100 M3 PO (16:07)
[2017-12-07] MEDS ORDERED: LISINOPRIL5 MG PO (16:07)
[2017-12-07] MEDS ORDERED: AMLODIPINE BESYL5 MG PO (16:07)
[2017-12-07 20:00] VITALS: BP 148/80
[2017-12-08] VITALS: BP 121/85
[2017-12-08 08:00] VITALS: BP 94/75
[2017-12-08 08:11] LABS: CREATININE 2.76 mg/dL (0.55-1.02); POTASSIUM 2.9 mmol/L (3.5-5.1)
[2017-12-08 08:25] VITALS: BP 109/59
[2017-12-08 08:45] LABS: ABG BASE EXCESS 4.3 mmol/L (-2.0-2.0); ABG O2 SATURATION 96.8 % (95-97); ARTERIAL BLOOD GAS PCO2 51.7 mmHg (35-45); ARTERIAL BLOOD GAS PH 7.377 (7.35-7.45); ARTERIAL BLOOD GAS PO2 90.6 mmHg (80-90)
[2017-12-08 09:43] LABS: BASO % 0.3 % (0.0-1.0); EOS # 0.2 10*3/uL (0.0-0.4); EOS % 1.9 % (1.0-4.0); HEMATOCRIT 32.6 % (37.0-47.0); HEMOGLOBIN 10.7 g/dl (12.0-16.0); LYMPH # 3.1 10*3/uL (1.3-4.4); LYMPH % 30.1 % (27.0-41.0); MEAN CELL VOLUME 89.1 fl (81.0-99.0); MEAN CORPUSCULAR HGB 29.2 pg (27.0-31.0); MEAN CORPUSCULAR HGB CONC 32.8 g/dl (33.0-37.0); MEAN PLATELET VOLUME 9.8 fl (9.6-12.3); MONO # 1.1 10*3/uL (0.1-1.0); MONO % 10.8 % (3.0-9.0); NEUT # 5.7 10*3/uL (2.3-7.9); NEUT % 55.9 % (47.0-73.0); PLATELET COUNT AUTOMATED 188 10*3/uL (130-400); RED BLOOD COUNT 3.66 10*6/uL (4.10-5.10); RED CELL DISTRI WIDTH 15.5 % (0-14.5); WHITE BLOOD COUNT 10.1 10*3/uL (4.8-10.8)
[2017-12-08 10:14] LABS: PHOSPHOROUS 4.1 mg/dL (2.5-4.9)
[2017-12-08 12:00] VITALS: BP 92/52
[2017-12-08 14:37] LABS: BASO % 0.2 % (0.0-1.0); EOS # 0.2 10*3/uL (0.0-0.4); EOS % 2.4 % (1.0-4.0); HEMATOCRIT 27.8 % (37.0-47.0); HEMOGLOBIN 8.8 g/dl (12.0-16.0); LYMPH % 33.9 % (27.0-41.0); MEAN CELL VOLUME 90.8 fl (81.0-99.0); MEAN CORPUSCULAR HGB 28.8 pg (27.0-31.0); MEAN CORPUSCULAR HGB CONC 31.7 g/dl (33.0-37.0); MEAN PLATELET VOLUME 10.6 fl (9.6-12.3); MONO % 10.7 % (3.0-9.0); NEUT # 4.6 10*3/uL (2.3-7.9); PLATELET COUNT AUTOMATED 158 10*3/uL (130-400); RED BLOOD COUNT 3.06 10*6/uL (4.10-5.10); RED CELL DISTRI WIDTH 15.6 % (0-14.5); WHITE BLOOD COUNT 8.9 10*3/uL (4.8-10.8)
[2017-12-08 14:40] LABS: ALBUMIN 2.6 gm/dl (3.1-4.5); CREATININE 3.08 mg/dL (0.55-1.02); POTASSIUM 3.6 mmol/L (3.5-5.1); TOTAL PROTEIN 6.1 gm/dL (6.4-8.2)
[2017-12-08 16:00] VITALS: BP 109/50
[2017-12-08 16:43] LABS: BILIRUBIN NEGATIVE (NEGATIVE); BLOOD NEGATIVE (NEGATIVE); CLARITY CLEAR (CLEAR); COLOR YELLOW (YELLOW); GLUCOSE 1+ (NEGATIVE); KETONE TRACE (NEGATIVE); LEUKO ESTERASE NEGATIVE (NEGATIVE); NITRITE NEGATIVE (NEGATIVE); PH 5.5 (5.0-9.0); SPECIFIC GRAVITY 1.015 (1.005-1.030); UROBILINOGEN 0.2 E.U./dl (0.2-1.0)
[2017-12-08 17:00] LABS: BACTERIA TRACE; RBC 0-2 rbc/hpf (0-2); WBC 0-2 wbc/hpf (0-5)
[2017-12-08 20:00] VITALS: BP 104/51
[2017-12-09] VITALS: BP 94/41
[2017-12-09 04:00] VITALS: BP 122/62
[2017-12-09 05:41] LABS: ALBUMIN 2.6 gm/dl (3.1-4.5); CREATININE 2.56 mg/dL (0.55-1.02); POTASSIUM 3.7 mmol/L (3.5-5.1); TOTAL PROTEIN 5.9 gm/dL (6.4-8.2)
[2017-12-09 05:46] LABS: BASO % 0.4 % (0.0-1.0); EOS # 0.2 10*3/uL (0.0-0.4); EOS % 3.4 % (1.0-4.0); HEMOGLOBIN 9.1 g/dl (12.0-16.0); LYMPH # 1.6 10*3/uL (1.3-4.4); LYMPH % 23.1 % (27.0-41.0); MEAN CELL VOLUME 91.8 fl (81.0-99.0); MEAN CORPUSCULAR HGB 28.8 pg (27.0-31.0); MEAN CORPUSCULAR HGB CONC 31.4 g/dl (33.0-37.0); MEAN PLATELET VOLUME 10.6 fl (9.6-12.3); MONO # 0.7 10*3/uL (0.1-1.0); MONO % 9.2 % (3.0-9.0); NEUT # 4.4 10*3/uL (2.3-7.9); NEUT % 62.9 % (47.0-73.0); PLATELET COUNT AUTOMATED 140 10*3/uL (130-400); RED BLOOD COUNT 3.16 10*6/uL (4.10-5.10); RED CELL DISTRI WIDTH 15.2 % (0-14.5); WHITE BLOOD COUNT 7.1 10*3/uL (4.8-10.8)
[2017-12-09 08:00] VITALS: BP 117/63
[2017-12-09 12:00] VITALS: BP 106/51
[2017-12-09 16:00] VITALS: BP 118/64
[2017-12-09 20:00] VITALS: BP 128/60
[2017-12-10] VITALS: BP 133/49
[2017-12-10 04:00] VITALS: BP 102/41
[2017-12-10 05:51] LABS: CREATININE 1.65 mg/dL (0.55-1.02)
[2017-12-10 08:00] VITALS: BP 108/72
[2017-12-10 12:00] VITALS: BP 126/67
== END 2017-12-10 15:53 | disposition other institution (70) | DRG 177 ==
LOC: ED 17:28 → ICCU 23:54 → EDHOLD 23:54 → 5E 23:54 → ICCU 12-08 08:16
PROVIDERS: Family Medicine; Internal Medicine; Internal Medicine Cardiovascular Disease; Nurse Practitioner Family; Student in an Organized Health Care Education/Training Program
DX: J15.6 Pneumonia due to other Gram-negative bacteria (principal); G93.41 Metabolic encephalopathy; N17.0 Acute kidney failure with tubular necrosis; I50.33 Acute on chronic diastolic (congestive) heart failure; E44.0 Moderate protein-calorie malnutrition; R13.10 Dysphagia, unspecified; I13.0 Hypertensive heart and chronic kidney disease with heart failure and stage 1 through stage 4 chronic kidney disease, or unspecified chronic kidney disease; F23 Brief psychotic disorder; E11.22 Type 2 diabetes mellitus with diabetic chronic kidney disease; E11.40 Type 2 diabetes mellitus with diabetic neuropathy, unspecified; E66.01 Morbid (severe) obesity due to excess calories; I36.1 Nonrheumatic tricuspid (valve) insufficiency; E83.39 Other disorders of phosphorus metabolism; E11.649 Type 2 diabetes mellitus with hypoglycemia without coma; N18.3 Chronic kidney disease, stage 3 (moderate); D72.829 Elevated white blood cell count, unspecified; G40.909 Epilepsy, unspecified, not intractable, without status epilepticus; E78.5 Hyperlipidemia, unspecified; Y95 Nosocomial condition; E53.8 Deficiency of other specified B group vitamins; D64.9 Anemia, unspecified; F32.9 Major depressive disorder, single episode, unspecified; K57.90 Diverticulosis of intestine, part unspecified, without perforation or abscess without bleeding; G30.9 Alzheimer's disease, unspecified; F02.80 Dementia in other diseases classified elsewhere, unspecified severity, without behavioral disturbance, psychotic disturbance, mood disturbance, and anxiety; M81.0 Age-related osteoporosis without current pathological fracture; Z79.899 Other long term (current) drug therapy; Z79.82 Long term (current) use of aspirin; Z86.73 Personal history of transient ischemic attack (TIA), and cerebral infarction without residual deficits; Z79.4 Long term (current) use of insulin; Z98.42 Cataract extraction status, left eye; Z98.41 Cataract extraction status, right eye; Z68.35 Body mass index [BMI] 35.0-35.9, adult

== ENCOUNTER 2017-12-24 14:51 | Inpatient (IN) | payer MEDICARE, MEDICAID ==
[~2017-12-24] VITALS: Ht 161.3 cm; Wt 84.4 kg
[2017-12-24 14:51] VITALS: BP 128/78
[~2017-12-24 14:51] MED LIST changes: +ALUM-MAG HYDRO360 ML PO; +DOXYCYCLINE100 M3 PO; +GABAPENTIN600 MG PO; +Glimepiride1 MG PO; +KEPPRA250 MG PO; +LISINOPRIL5 MG PO; +METFORMIN1000 MG PO; +NEURONTIN300 MG PO; +OMEPRAZOLE20 M2 PO; +TRESIBA FL100 UNIT/1 SQ; +TYLENOL WITH C1 EACH PO; +VITAMIN C500 M6 PO
[2017-12-24 15:25] LABS: BASO % 0.2 % (0.0-1.0); EOS # 0.2 10*3/uL (0.0-0.4); EOS % 1.9 % (1.0-4.0); HEMATOCRIT 37.1 % (37.0-47.0); HEMOGLOBIN 11.5 g/dl (12.0-16.0); LYMPH # 2.6 10*3/uL (1.3-4.4); LYMPH % 20.6 % (27.0-41.0); MEAN CELL VOLUME 92.3 fl (81.0-99.0); MEAN CORPUSCULAR HGB 28.6 pg (27.0-31.0); MEAN PLATELET VOLUME 10.8 fl (9.6-12.3); NEUT # 8.7 10*3/uL (2.3-7.9); NEUT % 68.4 % (47.0-73.0); PLATELET COUNT AUTOMATED 181 10*3/uL (130-400); RED BLOOD COUNT 4.02 10*6/uL (4.10-5.10); RED CELL DISTRI WIDTH 15.2 % (0-14.5); WHITE BLOOD COUNT 12.7 10*3/uL (4.8-10.8)
[2017-12-24 15:41] LABS: CREATININE 2.04 mg/dL (0.55-1.02); POTASSIUM 4.7 mmol/L (3.5-5.1); TOTAL PROTEIN 7.3 gm/dL (6.4-8.2)
[2017-12-24 17:22] LABS: BILIRUBIN NEGATIVE (NEGATIVE); BLOOD NEGATIVE (NEGATIVE); CLARITY CLEAR (CLEAR); COLOR YELLOW (YELLOW); GLUCOSE NEGATIVE (NEGATIVE); KETONE NEGATIVE (NEGATIVE); LEUKO ESTERASE TRACE (NEGATIVE); NITRITE NEGATIVE (NEGATIVE); UROBILINOGEN 0.2 E.U./dl (0.2-1.0)
[2017-12-24 17:39] LABS: BACTERIA TRACE; HYALINE CAST 15-20; RBC 0-2 rbc/hpf (0-2)
[2017-12-24 19:45] VITALS: BP 124/73
[2017-12-24] MEDS ORDERED: DULCOLAX10 M1 R (21:20)
[2017-12-24] MEDS ORDERED: MILK OF MA400 MG/51 PO (21:21)
[2017-12-24] MEDS ORDERED: READY TO USE E133 ML R (21:23)
[2017-12-25] VITALS: BP 114/52
[2017-12-25 06:02] LABS: BASO % 0.5 % (0.0-1.0); EOS # 0.2 10*3/uL (0.0-0.4); EOS % 2.5 % (1.0-4.0); HEMOGLOBIN 9.8 g/dl (12.0-16.0); LYMPH # 2.3 10*3/uL (1.3-4.4); MEAN CELL VOLUME 91.7 fl (81.0-99.0); MEAN CORPUSCULAR HGB 29.1 pg (27.0-31.0); MEAN CORPUSCULAR HGB CONC 31.7 g/dl (33.0-37.0); MEAN PLATELET VOLUME 11.5 fl (9.6-12.3); MONO # 0.5 10*3/uL (0.1-1.0); MONO % 7.1 % (3.0-9.0); NEUT # 4.5 10*3/uL (2.3-7.9); NEUT % 59.2 % (47.0-73.0); PLATELET COUNT AUTOMATED 156 10*3/uL (130-400); RED BLOOD COUNT 3.37 10*6/uL (4.10-5.10); RED CELL DISTRI WIDTH 15.4 % (0-14.5); WHITE BLOOD COUNT 7.6 10*3/uL (4.8-10.8)
[2017-12-25 06:04] LABS: HEMATOCRIT 30.9 % (37.0-47.0)
[2017-12-25 06:21] LABS: ACT PARTIAL THROMBO TIME 20.7 SECONDS (20.8-31.5)
[2017-12-25 06:28] LABS: ALBUMIN 2.6 gm/dl (3.1-4.5); POTASSIUM 4.2 mmol/L (3.5-5.1)
[2017-12-25 06:30] LABS: CREATININE 1.46 mg/dL (0.55-1.02); PHOSPHOROUS 3.4 mg/dL (2.5-4.9)
[2017-12-25 07:35] LABS: VITAMIN D, 25-HYDROXY 24.5 ng/mL (30-100)
[2017-12-25 08:00] VITALS: BP 118/56
[2017-12-25 12:00] VITALS: BP 136/52
== END 2017-12-25 14:06 | DRG 682 ==
LOC: ED 14:51 → EDHOLD 18:53 → 4E 18:53
PROVIDERS: Family Medicine; Student in an Organized Health Care Education/Training Program
DX: N17.0 Acute kidney failure with tubular necrosis (principal); G93.41 Metabolic encephalopathy; E87.2 Acidosis; E11.42 Type 2 diabetes mellitus with diabetic polyneuropathy; E11.22 Type 2 diabetes mellitus with diabetic chronic kidney disease; I13.0 Hypertensive heart and chronic kidney disease with heart failure and stage 1 through stage 4 chronic kidney disease, or unspecified chronic kidney disease; I50.32 Chronic diastolic (congestive) heart failure; N18.3 Chronic kidney disease, stage 3 (moderate); D64.9 Anemia, unspecified; D72.829 Elevated white blood cell count, unspecified; E78.2 Mixed hyperlipidemia; F32.9 Major depressive disorder, single episode, unspecified; E55.9 Vitamin D deficiency, unspecified; G40.909 Epilepsy, unspecified, not intractable, without status epilepticus; K57.90 Diverticulosis of intestine, part unspecified, without perforation or abscess without bleeding; K80.20 Calculus of gallbladder without cholecystitis without obstruction; E66.01 Morbid (severe) obesity due to excess calories; Z68.32 Body mass index [BMI] 32.0-32.9, adult; Z79.899 Other long term (current) drug therapy; Z79.82 Long term (current) use of aspirin; Z79.4 Long term (current) use of insulin

== ENCOUNTER → 2018-04-07 | Outpatient (CLI) | payer MEDICARE, MEDICAID ==
[~2018-04-07] MED LIST changes: +DULCOLAX10 M1 R; +MILK OF MA400 MG/51 PO; +READY TO USE E133 ML R
== END ==
LOC: LAB 08:16
DX: E78.5 Hyperlipidemia, unspecified (principal)

== ENCOUNTER 2018-08-19 13:36 | Inpatient (IN) | payer MEDICARE, MEDICAID ==
[~2018-08-19] VITALS: Ht 175.3 cm; Wt 89.6 kg
--- NOTE | ~2018-08-19 | EKG ---
[place], [place] ELECTROCARDIOGRAM REPORT NAME: DESIRE LEYVA UNIT #: [id number] ROOM: 407 DOCTOR: PRESTON DRAFT REPORT BIRTHDATE: [birth year] [facility] Test Date: 2018-08-19 Test Time: 14:23:44 Pat Name: DESIRE LEYVA Department: Room: 407 Gender: F Second Steward: Whitney Low : 1935 Requested By: LINDA MARTÍNEZ Order Number: [id number] Reading MD: Dawson Natarajan MD Measurements Intervals [place] Rate: 89 P: [place]: QRS: -25 QRSD: 117 T: -1 QT: 386 QTc: 470 Interpretive Statements Sinus rhythm Incomplete right bundle branch block Low voltage, precordial leads Probable left ventricular hypertrophy Electronically Signed On 08-20-2018 8:05:21 PDT by Dawson Natarajan MD CM:EKGRPT:ELECTROCARDIOGRAM REPORT [id number] LINDA JOHNSTON DRAFT REPORT LINDA MARTÍNEZ MD
[2018-08-19 13:37] VITALS: BP 140/88
[2018-08-19 14:18] LABS: HEMATOCRIT 30.9 % (37.0-47.0); HEMOGLOBIN 9.8 g/dl (12.0-16.0); MEAN CELL VOLUME 94.5 fl (81.0-99.0); MEAN CORPUSCULAR HGB CONC 31.7 g/dl (33.0-37.0); MEAN PLATELET VOLUME 10.8 fl (9.6-12.3); PLATELET COUNT AUTOMATED 166 10*3/uL (130-400); RED BLOOD COUNT 3.27 10*6/uL (4.10-5.10); RED CELL DISTRI WIDTH 14.8 % (0-14.5); WHITE BLOOD COUNT 13.6 10*3/uL (4.8-10.8)
[2018-08-19 14:27] LABS: ACT PARTIAL THROMBO TIME 20.7 SECONDS (20.8-31.5); INTERNATIONAL NORM RATIO 0.9 (2.0-3.5)
[2018-08-19 14:33] LABS: VALPROIC ACID (DEPAKENE) 55.3 ug/ml (50-100)
[2018-08-19 14:37] LABS: ALBUMIN 2.9 gm/dl (3.1-4.5); CREATININE 1.62 mg/dL (0.55-1.02); POTASSIUM 4.9 mmol/L (3.5-5.1); TOTAL PROTEIN 6.9 gm/dL (6.4-8.2); TROPONIN I 0.034 ng/ml (<0.045)
[2018-08-19 14:38] LABS: BURR CELLS FEW; PLATELET SUFFICIENCY NORMAL (NORMAL); TOTAL CELLS COUNTED 100 #CELLS
[2018-08-19 14:45] VITALS: BP 138/62
[2018-08-19 15:04] LABS: BILIRUBIN NEGATIVE (NEGATIVE); BLOOD 1+ (NEGATIVE); CLARITY SL CLOUDY (CLEAR); COLOR YELLOW (YELLOW); GLUCOSE NEGATIVE (NEGATIVE); KETONE NEGATIVE (NEGATIVE); LEUKO ESTERASE 3+ (NEGATIVE); NITRITE NEGATIVE (NEGATIVE); UROBILINOGEN 0.2 E.U./dl (0.2-1.0)
[2018-08-19 15:12] LABS: BACTERIA 1+; WBC TNTC wbc/hpf (0-5); YEAST 2+
[2018-08-19 15:56] VITALS: BP 103/45
[2018-08-19 16:46] VITALS: BP 128/82
[2018-08-19] MEDS ORDERED: BUSPAR5 MG PO (17:57)
[2018-08-19] MEDS ORDERED: CHLORASEPTIC S177 ML MM (17:59)
[2018-08-19] MEDS ORDERED: NEURONTIN100 MG PO (18:05)
[2018-08-19] MEDS ORDERED: NYSTATIN1 EAC5 MC (18:07)
[2018-08-19] MEDS ORDERED: ZOLOFT50 MG PO (18:08)
[2018-08-19] MEDS ORDERED: PROTONIX40 MG PO (18:08)
[2018-08-19] MEDS ORDERED: TUSSIN COU15 MG/5 ML PO (18:09)
[2018-08-19] MEDS ORDERED: TYLENOL325 M1 PO (18:10)
[2018-08-19] MEDS ORDERED: GLIMEPIRIDE4 M1 PO (18:12)
[2018-08-19] MEDS ORDERED: SINGULAIR10 M1 PO (18:13)
[2018-08-19 20:00] VITALS: BP 113/74
[2018-08-20] VITALS: BP 91/68
[2018-08-20 01:48] VITALS: BP 123/54
[2018-08-20 06:45] LABS: BASO % 0.3 % (0.0-1.0); EOS # 0.1 10*3/uL (0.0-0.4); EOS % 1.3 % (1.0-4.0); HEMATOCRIT 28.9 % (37.0-47.0); HEMOGLOBIN 8.8 g/dl (12.0-16.0); LYMPH # 1.6 10*3/uL (1.3-4.4); LYMPH % 18.3 % (27.0-41.0); MEAN CELL VOLUME 95.7 fl (81.0-99.0); MEAN CORPUSCULAR HGB 29.1 pg (27.0-31.0); MEAN CORPUSCULAR HGB CONC 30.4 g/dl (33.0-37.0); MEAN PLATELET VOLUME 10.6 fl (9.6-12.3); MONO # 0.9 10*3/uL (0.1-1.0); MONO % 10.1 % (3.0-9.0); NEUT # 5.9 10*3/uL (2.3-7.9); NEUT % 67.9 % (47.0-73.0); PLATELET COUNT AUTOMATED 150 10*3/uL (130-400); RED BLOOD COUNT 3.02 10*6/uL (4.10-5.10); RED CELL DISTRI WIDTH 15.1 % (0-14.5); WHITE BLOOD COUNT 8.7 10*3/uL (4.8-10.8)
[2018-08-20 07:08] LABS: ALBUMIN 2.6 gm/dl (3.1-4.5); CREATININE 1.47 mg/dL (0.55-1.02); FREE T4 0.99 ng/dl (0.76-1.46); PHOSPHOROUS 4.1 mg/dL (2.5-4.9); POTASSIUM 4.4 mmol/L (3.5-5.1); TOTAL PROTEIN 6.2 gm/dL (6.4-8.2)
[2018-08-20 07:12] LABS: THYROID STIM HORMONE (HS) 1.08 uIU/ml (0.358-4.75)
[2018-08-20 08:00] VITALS: BP 118/50
[2018-08-20 08:02] LABS: VITAMIN D, 25-HYDROXY 27.3 ng/mL (30-100)
[2018-08-20 12:00] VITALS: BP 125/68
[2018-08-20 16:00] VITALS: BP 121/66
[2018-08-20 20:00] VITALS: BP 134/52
[2018-08-21] VITALS: BP 126/82
[2018-08-21 07:16] LABS: POTASSIUM 3.9 mmol/L (3.5-5.1)
[2018-08-21 07:18] LABS: CREATININE 1.32 mg/dL (0.55-1.02)
[2018-08-21 08:00] VITALS: BP 128/76
[2018-08-21 12:00] VITALS: BP 139/57
[2018-08-21 16:00] VITALS: BP 138/69
[2018-08-21 20:00] VITALS: BP 125/81
[2018-08-22] VITALS: BP 123/61
[2018-08-22 12:00] VITALS: BP 153/59
[2018-08-22] MEDS ORDERED: DOXYCYCLINE100 M3 PO (15:43)
[2018-08-22 16:00] VITALS: BP 147/66
== END 2018-08-22 17:40 | disposition other institution (70) | DRG 871 ==
LOC: ED 13:36 → 4E 15:15 → EDHOLD 15:15 → 4E 16:01
PROVIDERS: Emergency Medicine; Internal Medicine
DX: A41.9 Sepsis, unspecified organism (principal); J18.9 Pneumonia, unspecified organism; G93.41 Metabolic encephalopathy; N39.0 Urinary tract infection, site not specified; E87.2 Acidosis; I50.30 Unspecified diastolic (congestive) heart failure; I13.0 Hypertensive heart and chronic kidney disease with heart failure and stage 1 through stage 4 chronic kidney disease, or unspecified chronic kidney disease; R65.20 Severe sepsis without septic shock; N18.9 Chronic kidney disease, unspecified; F32.9 Major depressive disorder, single episode, unspecified; E11.22 Type 2 diabetes mellitus with diabetic chronic kidney disease; K57.90 Diverticulosis of intestine, part unspecified, without perforation or abscess without bleeding; E78.5 Hyperlipidemia, unspecified; E11.40 Type 2 diabetes mellitus with diabetic neuropathy, unspecified; D50.9 Iron deficiency anemia, unspecified; E66.01 Morbid (severe) obesity due to excess calories; D64.9 Anemia, unspecified; G40.909 Epilepsy, unspecified, not intractable, without status epilepticus; Z98.891 History of uterine scar from previous surgery; Z79.4 Long term (current) use of insulin; Z98.42 Cataract extraction status, left eye; Z98.41 Cataract extraction status, right eye; Z68.27 Body mass index [BMI] 27.0-27.9, adult

== ENCOUNTER 2018-12-14 21:25 | Inpatient (IN) | payer MEDICARE, MEDICAID ==
[~2018-12-14] VITALS: Ht 170.1 cm; Wt 95.3 kg
--- NOTE | ~2018-12-14 | EKG ---
[place], [place] ELECTROCARDIOGRAM REPORT NAME: DESIRE LEYVA UNIT #: [id number] ROOM: 422 DOCTOR: EPIPHANY DRAFT REPORT BIRTHDATE: [birth year] [facility] Test Date: 2018-12-14 Test Time: 21:55:31 Pat Name: DESIRE LEYVA Department: Room: 422 Gender: F Security Control Room Officer: Delfina Diaz : 1935 Requested By: MALIA STROUD Order Number: [id number] Reading MD: Neeraj Singh MD Measurements Intervals [place] Rate: 84 P: 0 [place]: 151 QRS: -34 QRSD: 138 T: -5 QT: 411 QTc: 486 Interpretive Statements Sinus rhythm Consider right atrial enlargement Right bundle branch block Probable left ventricular hypertrophy Borderline prolonged QT interval Artifact in lead(s) I,II,III,aVR,aVL,aVF Compared to ECG 08/19/2018 14:23:44 Right bundle-branch block now present Incomplete right bundle-branch block no longer present Electronically Signed On 12-15-2018 12:04:41 PST by Neeraj Singh MD CM:EKGRPT:ELECTROCARDIOGRAM REPORT [id number] MALIA STROUD MD EPIPHANY DRAFT REPORT MALIA STROUD MD
[~2018-12-14 21:25] MED LIST changes: +BUSPAR5 MG PO; +CHLORASEPTIC S177 ML MM; +GLIMEPIRIDE4 M1 PO; +NYSTATIN1 EAC5 MC; +PROTONIX40 MG PO; +TUSSIN COU15 MG/5 ML PO; +ZOLOFT50 MG PO
[2018-12-14 21:27] VITALS: BP 138/95
[2018-12-14 22:21] LABS: BASO % 0.1 % (0.0-1.0); EOS # 0.1 10*3/uL (0.0-0.4); EOS % 1.5 % (1.0-4.0); HEMATOCRIT 33.7 % (37.0-47.0); HEMOGLOBIN 10.6 g/dl (12.0-16.0); LYMPH # 1.8 10*3/uL (1.3-4.4); LYMPH % 23.8 % (27.0-41.0); MEAN CELL VOLUME 93.4 fl (81.0-99.0); MEAN CORPUSCULAR HGB 29.4 pg (27.0-31.0); MEAN CORPUSCULAR HGB CONC 31.5 g/dl (33.0-37.0); MEAN PLATELET VOLUME 10.8 fl (9.6-12.3); MONO # 0.8 10*3/uL (0.1-1.0); MONO % 10.6 % (3.0-9.0); NEUT # 4.7 10*3/uL (2.3-7.9); NEUT % 62.4 % (47.0-73.0); PLATELET COUNT AUTOMATED 192 10*3/uL (130-400); RED BLOOD COUNT 3.61 10*6/uL (4.10-5.10); RED CELL DISTRI WIDTH 15.3 % (0-14.5); WHITE BLOOD COUNT 7.5 10*3/uL (4.8-10.8)
[2018-12-14 22:27] LABS: BILIRUBIN NEGATIVE (NEGATIVE); BLOOD NEGATIVE (NEGATIVE); CLARITY CLEAR (CLEAR); COLOR YELLOW (YELLOW); GLUCOSE 1+ (NEGATIVE); KETONE NEGATIVE (NEGATIVE); LEUKO ESTERASE 1+ (NEGATIVE); NITRITE NEGATIVE (NEGATIVE); PH 5.5 (5.0-9.0); UROBILINOGEN 0.2 E.U./dl (0.2-1.0)
[2018-12-14 22:33] LABS: ACT PARTIAL THROMBO TIME 20.9 SECONDS (20.8-31.5); INTERNATIONAL NORM RATIO 0.9 (2.0-3.5)
[2018-12-14 22:40] LABS: ALBUMIN 2.9 gm/dl (3.1-4.5); CREATININE 1.72 mg/dL (0.55-1.02); POTASSIUM 3.7 mmol/L (3.5-5.1); TOTAL PROTEIN 7.1 gm/dL (6.4-8.2); TROPONIN I 0.022 ng/ml (<0.045)
[2018-12-14 22:59] LABS: YEAST 1+
[2018-12-14 23:01] LABS: WBC 21-30 wbc/hpf (0-5)
--- NOTE | 2018-12-15 00:32 | NUR ---
LAB CALLED REPORT LA 2.5 DR. MARCUM NOTIFIED
[2018-12-15 01:11] VITALS: BP 97/60
[2018-12-15] MEDS ORDERED: [UNRECOGNIZED DRUG - OTHER] T (01:28)
[2018-12-15] MEDS ORDERED: GLIMEPIRIDE4 M1 PO (01:29)
[2018-12-15] MEDS ORDERED: ARTIFICIAL TEAR15 M1 OPH (01:31)
[2018-12-15] MEDS ORDERED: Accuneb 0.1.25 MG/3 INH (01:33)
[2018-12-15] MEDS ORDERED: ALBUTEROL S5 MG/1 ML NEB (01:34)
[2018-12-15] MEDS ORDERED: MILK OF MA400 MG/51 PO (01:38)
--- NOTE | 2018-12-15 01:38 | NUR ---
A 83, admitted to 4E, under the services of DOMINIQUE Hunter DO with a diagnosis of UTI, ENCEPHALOPATHY ACUTE, EPISODE OF SYMCOPE. Chief complaint is CHANGE IN MENTAL STATUS. Patient arrived via ambulance from ER. Monitor applied. Initial assessment completed. Vital signs taken and recorded. DOMINIQUE HUNTER DO notified of admission to the unit. Orders received. See assessment for past medical history, medications and allergies. Patient and/or family oriented to unit. visitation policy reviewed. Clothing/patient valuable form completed. ISHMAEL BARBOSA
[2018-12-15] MEDS ORDERED: READY TO USE E133 ML R (01:39)
[2018-12-15] MEDS ORDERED: PROMETHAZINE25 MG IM (01:40)
[2018-12-15] MEDS ORDERED: TRESIBA FL100 UNIT/1 SQ (01:42)
[2018-12-15] MEDS ORDERED: VITAMIN C500 M4 PO (01:44)
[2018-12-15] MEDS ORDERED: RANITIDINE HCL150 M1 PO (01:45)
[2018-12-15] MEDS ORDERED: SEPTDS PO (01:47)
--- NOTE | 2018-12-15 01:55 | NUR ---
MEDICATIONS VERIFIED WITH CORRECTION MED LIST.
[2018-12-15] MEDS ORDERED: ZESTRIL,PRINIVIL5 MG PO (02:58)
[2018-12-15 06:57] LABS: BASO % 0.3 % (0.0-1.0); EOS # 0.1 10*3/uL (0.0-0.4); EOS % 1.5 % (1.0-4.0); HEMOGLOBIN 9.2 g/dl (12.0-16.0); LYMPH # 1.7 10*3/uL (1.3-4.4); LYMPH % 22.7 % (27.0-41.0); MEAN CELL VOLUME 93.8 fl (81.0-99.0); MEAN CORPUSCULAR HGB 28.8 pg (27.0-31.0); MEAN CORPUSCULAR HGB CONC 30.7 g/dl (33.0-37.0); MEAN PLATELET VOLUME 11.3 fl (9.6-12.3); MONO # 0.7 10*3/uL (0.1-1.0); MONO % 9.8 % (3.0-9.0); NEUT # 4.8 10*3/uL (2.3-7.9); NEUT % 64.5 % (47.0-73.0); PLATELET COUNT AUTOMATED 164 10*3/uL (130-400); RED CELL DISTRI WIDTH 15.3 % (0-14.5); WHITE BLOOD COUNT 7.5 10*3/uL (4.8-10.8)
--- NOTE | 2018-12-15 07:25 | NUR ---
BEDSIDE REPORT OBTAINED FROM ISHMAEL-BARBARA. PATIENT IS RESTING IN BED, EYES CLOSED. NO S&S OF DISTRESS NOTED, RESP ARE ERND ON ROOM AIR. BED IS LOCKED IN LOWEST POSITION, ALARM MAINTAINED. CALL LIGHT LEFT WITHIN REACH.
[2018-12-15 07:27] LABS: POTASSIUM 3.6 mmol/L (3.5-5.1)
[2018-12-15 07:48] LABS: CREATININE 1.46 mg/dL (0.55-1.02); FREE T4 0.93 ng/dl (0.76-1.46); PHOSPHOROUS 3.4 mg/dL (2.5-4.9); THYROID STIM HORMONE (HS) 1.59 uIU/ml (0.358-4.75); VALPROIC ACID (DEPAKENE) 40.8 ug/ml (50-100)
[2018-12-15 08:00] VITALS: BP 145/87
[2018-12-15 08:01] LABS: VITAMIN D, 25-HYDROXY 35.6 ng/mL (30-100)
--- NOTE | 2018-12-15 10:00 | NUR ---
DRESSING CHANGE COMPLETED TO COCCYX. PATIENT TOLERATED WELL.
[2018-12-15 12:00] VITALS: BP 133/50
--- NOTE | 2018-12-15 12:33 | NUR ---
INFORMED OF PATIENT'S CURRENT BLOOD SUGER OF 77 AND BEING NPO D/T ORDER OF SUCK/SWALLOW REFLEX AND ST NOT IN TILL MONDAY. STATES TO GO AHEAD AND PLACE DIABETIC DIET AND STAY [place] PATIENT DURING FIRST FEW BITES TO ENSURE SHE NOT CHOKING
--- NOTE | 2018-12-15 13:10 | NUR ---
PATIENT MONITORED THROUGHTOUT DURATION OF MEAL TIME. PATIENT SHOWED NO SIGNS OF DIFFICULTY WHILE EATING. NO COUGHING/GAGGING/CHOKING NOTED. WILL CONTINUE TO MONITOR.
--- NOTE | 2018-12-15 14:50 | NUR ---
PATIENT GIVEN SHORT YES/NO QUESTIONS AT THIS TIME IN REGARDS TO MEDICATION ADMINISTRATION. PATIENT TAKES PILLS WHOLE WITH NO COMPLICATIONS.
[2018-12-15 16:00] VITALS: BP 125/51
--- NOTE | 2018-12-15 18:15 | NUR ---
PATIENT INITIATED EATING BY SELF. NO DISTRESS NOTED THROUGHTOUT MEAL. PATIENT TOLERATED REGULAR TEXTURE THIN LIQUIDS WELLS.
[2018-12-15 20:00] VITALS: BP 122/45
[2018-12-16] VITALS: BP 124/50
[2018-12-16 06:34] LABS: CREATININE 1.21 mg/dL (0.55-1.02); POTASSIUM 3.7 mmol/L (3.5-5.1)
[2018-12-16 08:00] VITALS: BP 152/48
--- NOTE | 2018-12-16 08:00 | NUR ---
PT AWAKE/ALERT. ASSESSMENT COMPLETE. PT SMILING AND RESPONDS APPROPRIATELY TO YES/NO QUESTIONS. BED LOW. ALARM ON. CALL MAYA IN REACH
[2018-12-16 12:00] VITALS: BP 153/55
[2018-12-16 16:00] VITALS: BP 155/81
--- NOTE | 2018-12-16 17:20 | NUR ---
PT AWAKE. EATING DINNER. ROUTINE MEDICATIONS WELL TOLERATED. PT STATES "IT'S COLD IN HERE." I WAS HAPPY TO HEAR HER COMMUNICATING MORE. HEAT TURNED UP AND EXTRA BLANKET PROVIDED.
[2018-12-16 20:00] VITALS: BP 128/53
[2018-12-17] VITALS: BP 110/41
[2018-12-17 06:11] LABS: BASO % 0.4 % (0.0-1.0); EOS # 0.2 10*3/uL (0.0-0.4); HEMATOCRIT 28.3 % (37.0-47.0); HEMOGLOBIN 8.9 g/dl (12.0-16.0); LYMPH # 1.5 10*3/uL (1.3-4.4); LYMPH % 28.9 % (27.0-41.0); MEAN CELL VOLUME 92.8 fl (81.0-99.0); MEAN CORPUSCULAR HGB 29.2 pg (27.0-31.0); MEAN CORPUSCULAR HGB CONC 31.4 g/dl (33.0-37.0); MEAN PLATELET VOLUME 10.7 fl (9.6-12.3); MONO # 0.5 10*3/uL (0.1-1.0); MONO % 8.9 % (3.0-9.0); NEUT # 2.9 10*3/uL (2.3-7.9); PLATELET COUNT AUTOMATED 165 10*3/uL (130-400); RED BLOOD COUNT 3.05 10*6/uL (4.10-5.10); RED CELL DISTRI WIDTH 15.4 % (0-14.5); WHITE BLOOD COUNT 5.3 10*3/uL (4.8-10.8)
[2018-12-17 06:18] LABS: BUN 10 mg/dl (7-24); CHLORIDE 109 mmol/L (98-107); CREATININE 1.01 mg/dL (0.55-1.02); POTASSIUM 3.5 mmol/L (3.5-5.1); SODIUM 145 mmol/L (136-145)
--- NOTE | 2018-12-17 07:00 | NUR ---
DRESSING TO COCCYX ALREADY CHANGED PER WOUND NURSE THIS AM.
--- NOTE | 2018-12-17 07:15 | NUR ---
PT AWAKE. VERY ALERT AND SMILING THIS MORNING. WHEN ASKED HOW SHE SLEPT SHE STATED "WELL I SLEPT." BEDSIDE REPORT RECEIVED FROM AMNA JIMENEZ. BED LOW. ALARM ON.
--- NOTE | 2018-12-17 07:26 | NUR ---
DESIRE LEYVA [id number] Please refer to the physician's history and physical for past medical history, comorbid conditions, and allergies. Diagnosis: UTI,ENCEPHALOPATHY ACUTE,EPISODE OF SYNCOPE [place] Score: 13,MODERATE RISK WOUND DESCRIPTIONS: Location of the wound: coccyx Type of wound: stage 3 Thickness: Full Size: 0.6cm x 0.7cm x <0.1cm Tunneling: none Undermining: none Sinus Tract: none Presence of Exudate: Serosanguineous Amount: Light Color: Yellow, red Odor: None Periwound Skin Appearance: Erythema Wound edges: approximated Pain (associated with wound): none at time of assessment How does patient state this happened? pt is unaware that she even had an open area Bilateral heels are red and blanchable at time of assessment. No open areas noted to Bilatera heels at this time. Surface the patient is resting on: Isoflex SKIN PREVENTION RECOMMENDATION: 1. Pressure redistribution support surface as appropriate 2. Elevate heels 3. Remove boots/TEDS every shift and reapply 4. Head of bed 30 degrees as tolerated 5. Assess nutrition and hydration 6. Manage moisture 7. Avoid the use of containment devices while in bed 8. Use absorptive products on surfaces limit layers of linens on bed 9. Turn and reposition every 1-2 hours in bed and every 1 hour in chair as tolerated 10. Weight shifts every 15 minutes while up in chair 11. Offloading with pillows or device to keep heels elevated off bed 12. Monitor skin at least every shift 13. Inspect under medical devices twice a day WOUND TREATMENT RECOMMENDATIONS: Consult surgery for possible debridement of coccyx. d/c stage 2 guidelines Stage 3 guidelines: Cleanse coccyx with nss and apply sureprep around the wound therahoney to wound bed and cover with optifoam gentle Wheelchair cushion when oob. Heel raiser pro boots while in bed.
[2018-12-17 07:44] VITALS: BP 160/78
--- NOTE | 2018-12-17 07:58 | NUR ---
PT IS A&O TO SELF & PLACE. PT IS COOPERATIVE AND FOLLOWS COMMANDS CORRECTLY AT THIS TIME. PT STATES NO PAIN AT THIS TIME. WILL CONTINUE TO MONITOR. ZEKE LESLIE SPCC
--- NOTE | 2018-12-17 08:58 | NUR ---
Dr. Harvey notified of wound care recommendations.
--- NOTE | 2018-12-17 09:21 | NUR ---
patient is escrow agent care at [facility]; Faxed clinical updates for review and notified facility patient will be ready to D/C today. Patient is ok to go when medically stable for discharge.
--- NOTE | 2018-12-17 09:28 | NUR ---
PHYSICAL THERAPY PT orders received. D/c PT orders, no specific PT skills/needs. PAtient is care home care and max (A). Recommend amarilys lift for in/out of bed via nursing staff and daily ROM with nursing care. Thank you for this referral. Lesa Trivedi,PT
--- NOTE | 2018-12-17 09:48 | NUR ---
SPEECH PATHOLOGY Clinical swallowing evaluation completed as per orders due to history of dysphagia and reports of pocketing food. Patient was admitted with acute change in mental status at intermediate. History is significant for CVA, dementia, syncope, GERD. Patient currently receives a regular diet and thin liquid. For assessment she was alert and pleasant. Confusion was displayed. Patient had difficulty answering simple questions and following one step directives. She imitated labial movements and displayed no impairments. Lingual incoordination was displayed when patient imitated lateral, elevation and depression movements. She was assessed with puree, thin liquid by straw and solid consistency. She was fed by clinician and displayed no oral or pharyngeal difficulty. Recommend she remain on a regular diet. Her condition places her at risk for aspiration therefore short term follow up is recommended to ensure safety through education and use of safe swallow strategies when feeding such as upright positioning, small bites/sips and alternating liquid and solid. Results and laura. were shared with patient's nurse who verbalized understanding. Refer to report in [employer] for further information. Thank you for this referral. JOSE WILHELM MSCCC-QUALITATIVE EXECUTIVE RESEARCHER
[2018-12-17 12:00] VITALS: BP 143/55
[2018-12-17] MEDS ORDERED: NATURE'S BLEND F1 MG PO (12:59)
[2018-12-17] MEDS ORDERED: TYLENOL WITH C1 EACH PO (12:59)
[2018-12-17] MEDS ORDERED: FLUCONAZOLE100 MG PO (12:59)
[2018-12-17] MEDS ORDERED: LASIX40 MG PO (12:59)
--- NOTE | 2018-12-17 13:20 | NUR ---
PT SITTING UP IN BED WATCHING TV WITH BED ALARM INTACT AND CALL LIGHT WITHIN REACH. REPORT GIVEN TO TINO LESLIE SPCC
--- NOTE | 2018-12-17 13:46 | NUR ---
Patient is discharged to return to [facility]. Transportation scheduled for 2:45 PM with [facility]. [place] notified, [place] info faxed. Nursing and plant clerk notified. Patients daughter gordon notified.
--- NOTE | 2018-12-17 15:00 | NUR ---
PATIENT LEFT FLOOR VIA [facility]. PAPER WORK WITH EMT.
--- NOTE | 2018-12-17 15:02 | NUR ---
FINESSE CALLED TO NURSE OROSCO AT [facility].
== END 2018-12-17 15:00 | DRG 682 ==
LOC: ED 21:25 → EDHOLD 12-15 00:07 → 4E 12-15 00:07 → EDHOLD 12-15 00:20 → 4E 12-15 00:40
PROVIDERS: Emergency Medicine Emergency Medical Services; Internal Medicine; ADMIT Emergency Medicine
DX: N17.0 Acute kidney failure with tubular necrosis (principal); G93.41 Metabolic encephalopathy; E43 Unspecified severe protein-calorie malnutrition; N30.00 Acute cystitis without hematuria; E87.2 Acidosis; I50.32 Chronic diastolic (congestive) heart failure; F03.91 Unspecified dementia, unspecified severity, with behavioral disturbance; I13.0 Hypertensive heart and chronic kidney disease with heart failure and stage 1 through stage 4 chronic kidney disease, or unspecified chronic kidney disease; F32.9 Major depressive disorder, single episode, unspecified; N18.3 Chronic kidney disease, stage 3 (moderate); I95.9 Hypotension, unspecified; I45.10 Unspecified right bundle-branch block; R79.82 Elevated C-reactive protein (CRP); E11.65 Type 2 diabetes mellitus with hyperglycemia; E11.22 Type 2 diabetes mellitus with diabetic chronic kidney disease; D72.810 Lymphocytopenia; D64.9 Anemia, unspecified; I25.10 Atherosclerotic heart disease of native coronary artery without angina pectoris; K21.9 Gastro-esophageal reflux disease without esophagitis; M81.0 Age-related osteoporosis without current pathological fracture; K59.00 Constipation, unspecified; K57.90 Diverticulosis of intestine, part unspecified, without perforation or abscess without bleeding; R13.10 Dysphagia, unspecified; E66.9 Obesity, unspecified; E78.5 Hyperlipidemia, unspecified; F41.9 Anxiety disorder, unspecified; E55.9 Vitamin D deficiency, unspecified; E53.8 Deficiency of other specified B group vitamins; G40.909 Epilepsy, unspecified, not intractable, without status epilepticus; I67.9 Cerebrovascular disease, unspecified; E11.40 Type 2 diabetes mellitus with diabetic neuropathy, unspecified; J30.9 Allergic rhinitis, unspecified; Z79.4 Long term (current) use of insulin; Z88.1 Allergy status to other antibiotic agents; Z79.899 Other long term (current) drug therapy; Z68.32 Body mass index [BMI] 32.0-32.9, adult

== ENCOUNTER 2019-02-08 19:49 | Emergency (ER) | payer MEDICARE, MEDICAID ==
[~2019-02-08] VITALS: Ht 170.1 cm; Wt 113.4 kg
[~2019-02-08 19:49] MED LIST changes: +ALBUTEROL S5 MG/1 ML NEB; +ARTIFICIAL TEAR15 M1 OPH; +Accuneb 0.1.25 MG/3 INH; +FLUCONAZOLE100 MG PO; +NATURE'S BLEND F1 MG PO; +PROMETHAZINE25 MG IM; +RANITIDINE HCL150 M1 PO; +SEPTDS PO; +VITAMIN C500 M4 PO; +ZESTRIL,PRINIVIL5 MG PO; +[UNRECOGNIZED DRUG - OTHER] T
[2019-02-08 21:18] VITALS: BP 134/64
== END 2019-02-08 23:01 ==
LOC: ED 19:49
DX: S00.12XA Contusion of left eyelid and periocular area, initial encounter (principal); S00.83XA Contusion of other part of head, initial encounter; F03.90 Unspecified dementia, unspecified severity, without behavioral disturbance, psychotic disturbance, mood disturbance, and anxiety; E78.5 Hyperlipidemia, unspecified; E11.9 Type 2 diabetes mellitus without complications; I10 Essential (primary) hypertension; Z88.1 Allergy status to other antibiotic agents; Z79.899 Other long term (current) drug therapy; Z79.4 Long term (current) use of insulin; Z79.82 Long term (current) use of aspirin; Z86.73 Personal history of transient ischemic attack (TIA), and cerebral infarction without residual deficits; W05.0XXA Fall from non-moving wheelchair, initial encounter; Y93.89 Activity, other specified; Y92.128 Other place in nursing home as the place of occurrence of the external cause; Y99.8 Other external cause status